=== PATIENT | male | born 1990 | race Hispanic/Latino ===

== ENCOUNTER 2021-03-22 21:26 | Emergency (ER) | payer OTHER ==
[~2021-03-22] VITALS: Ht 170.2 cm; Wt 79.8 kg
[2021-03-22 22:02] VITALS: BP 156/73
== END 2021-03-22 22:07 ==
LOC: EDH 21:26 → EEVIPCON 21:26 → EDH 22:07
DX: Z02.83 Encounter for blood-alcohol and blood-drug test (principal)